=== PATIENT | male | born 1955 | race Caucasian/White ===

== ENCOUNTER 2022-01-11 21:19 | Emergency (ER) | payer MEDICARE, BC ==
[~2022-01-11] VITALS: Ht 177.8 cm; Wt 86.2 kg
[2022-01-11] MEDS ORDERED: CYCL10 PO (22:37)
== END 2022-01-11 22:50 | disposition home or self-care (01) ==
LOC: ER 21:19
DX: M54.50 Low back pain, unspecified (principal); Z88.0 Allergy status to penicillin
CPT/HCPCS: A9270; J1885